=== PATIENT | male | born 1975 | race Caucasian/White ===

== ENCOUNTER 2016-07-31 00:53 | Inpatient (IN) | payer OTHER ==
[~2016-07-31] VITALS: Ht 175.3 cm; Wt 75.1 kg
[2016-07-31] MEDS ORDERED: SODIUM CHLORIDE 0.9% 1,000 ML IV ONE ×2 (02:00→03:45)
[2016-07-31 02:25] LABS: MEAN CORPUSCULAR HEMOGLOBIN 29.1 pg (26.0-34.0); MEAN CORPUSCULAR HGB CONC 33.4 G/dL (31.0-37.0); MEAN CORPUSCULAR VOLUME 87 fL (80-100); PLATELET COUNT (AUTO) 339 K/uL (150-450); RED BLOOD CELL COUNT(AUTO) 6.51 MIL/uL (4.50-5.90); RED CELL DISTRIBUTION WIDTH 13.1 % (11.5-14.5)
[2016-07-31 02:42] LABS: HEMATOCRIT 56.7 % (41-53)
[2016-07-31 02:46] LABS: GLUCOSE,POINT OF CARE 68 MG/DL (70-110)
[2016-07-31 02:53] LABS: APPEARANCE,URINE CLEAR (CLEAR); GLUCOSE, URINE (UA) NEGATIVE (NEGATIVE); KETONES,URINE TRACE mg/dL (NEGATIVE); LEUKOCYTE ESTERASE ,URINE SMALL (NEGATIVE); OCCULT BLOOD,URINE NEGATIVE (NEGATIVE); PROTEIN,URINE POS 1+ (NEGATIVE)
[2016-07-31 03:03] LABS: RBC,URINE 0-2 /HPF (0-2); SQUAMOUS EPITHELIAL CELL,UR Few /LPF (None Seen)
[2016-07-31 03:04] LABS: AMORPHOUS SEDIMENT,UR Few /LPF (None Seen)
[2016-07-31 03:16] LABS: ANION GAP 20 mmol/L (8-16); CALCIUM, TOTAL 10.8 mg/dL (8.8-10.5); CARBON DIOXIDE 23 mmol/L (22-29); CHLORIDE 97 mmol/L (98-107); CREATININE 3.29 mg/dL (0.60-1.30); GLOMERULAR FILTR. RATE CALC 21 mL/min (>60); POTASSIUM 5.1 mmol/L (3.5-5.1); SODIUM SERUM 140 mmol/L (136-145); UREA NITROGEN, BLOOD 37 mg/dL (7-18)
[2016-07-31 03:22] LABS: ALANINE AMINOTRANSFERASE 218 U/L (12-78); ALBUMIN 5.5 g/dL (3.4-5.0); ASPARTATE AMINOTRANSFERASE 206 U/L (15-37); BILIRUBIN,TOTAL 1.2 mg/dL (0.1-1.0); TOTAL PROTEIN, SERUM 10.3 g/dL (6.4-8.2)
[2016-07-31] MEDS ORDERED: DEXTROSE 50%-WATER 25 GM/50 ML SYRINGE IVP ONE (03:45)
[2016-07-31 04:05] LABS: LYMPHOCYTES % (MANUAL) 6 % (22-44)
[2016-07-31 04:08] LABS: TOTAL CELLS COUNTED 100
[2016-07-31 04:31] LABS: GLUCOSE,POINT OF CARE 185 MG/DL (70-110)
[2016-07-31 04:37] LABS: SALICYLATE < 2.8 mg/dL (2.8-20.0)
[2016-07-31 04:39] LABS: ACETAMINOPHEN < 2 mcg/mL (10-30)
[2016-07-31] MEDS ORDERED: ACETAMINOPHEN 325 MG TABLET PO PRN ×2 (05:45→21:45)
[2016-07-31] MEDS ORDERED: ONDANSETRON HCL 4 MG/2 ML VIAL IVP PRN ×2 (05:45→21:45)
[2016-07-31] MEDS ORDERED: ASPIRIN 81 MG CHEWABLE TABLET PO ONE (05:45)
[2016-07-31] MEDS ORDERED: 0.9% SODIUM CHLORIDE 10 ML SYRINGE IVP PRN ×2 (05:45→21:45)
[2016-07-31 12:20] VITALS: BP 155/85
[2016-07-31 15:43] VITALS: BP 149/99
[2016-07-31 16:19] VITALS: BP 149/99
[2016-07-31 20:00] VITALS: BP 130/76
[2016-07-31] MEDS ORDERED: INFLUENZA VIRUS VACCINE QVS 2016-17 (3YR+)/PF 60 MCG/0.5 ML SYRINGE IM ONE (20:00)
[2016-07-31] MEDS ORDERED: MAGNESIUM HYDROXIDE SUSPENSION 30 ML UDCUP PO PRN (21:45)
[2016-07-31] MEDS ORDERED: OxyCODONE HCL/ACETAMINOPHEN 5-325 MG TABLET PO PRN ×2 (21:45)
[2016-07-31] MEDS: DOCUSATE SODIUM 100 MG CAPSULE PO SCH (21:58)
[2016-07-31] MEDS: SODIUM CHLORIDE 0.9% 1,000 ML IV SCH (21:59)
[2016-07-31] MEDS ORDERED: CefTRIAXone 1 GM/DEXTROSE 50 ML IV SCH (22:00)
[2016-07-31 22:34] LABS: CHOL/HDL RATIO 3.5 (4.2-7.3)
[2016-07-31] MEDS: NITROGLYCERIN 2% (1 GM=INCH) PACKET TP SCH (23:28)
[2016-07-31 23:53] VITALS: BP 134/94
[2016-08-01 04:57] VITALS: BP 126/64
[2016-08-01] MEDS: NITROGLYCERIN 2% (1 GM=INCH) PACKET TP SCH ×2 (05:31→12:00)
[2016-08-01 06:42] LABS: BASOPHILS # (AUTO) 0.06 K/uL (0.00-0.20); BASOPHILS % (AUTO) 0.7 % (0.0-2.0); EOSINOPHILS # (AUTO) 0.29 K/uL (0.00-0.70); EOSINOPHILS % (AUTO) 3.06 % (1.0-6.0); HEMATOCRIT 46.1 % (41-53); HEMOGLOBIN 15.7 g/dL (13.5-17.5); LYMPHOCYTES # (AUTO) 3.3 K/uL (1.0-4.8); LYMPHOCYTES % (AUTO) 34.8 % (22.0-44.0); MEAN CORPUSCULAR HEMOGLOBIN 29.6 pg (26.0-34.0); MEAN CORPUSCULAR HGB CONC 34.1 G/dL (31.0-37.0); MEAN CORPUSCULAR VOLUME 87 fL (80-100); MONOCYTES # (AUTO) 0.9 K/uL (0.1-1.0); MONOCYTES % (AUTO) 8.9 % (2.0-9.0); NEUTROPHILS # (AUTO) 5.1 K/uL (1.8-7.7); NEUTROPHILS % (AUTO) 52.6 % (40.0-70.0); PLATELET COUNT (AUTO) 239 K/uL (150-450); RED BLOOD CELL COUNT(AUTO) 5.32 MIL/uL (4.50-5.90); RED CELL DISTRIBUTION WIDTH 13.4 % (11.5-14.5); WHITE BLOOD COUNT (AUTO) 9.6 K/uL (4.5-11.0)
[2016-08-01 07:03] LABS: ALBUMIN 3.4 g/dL (3.4-5.0); BILIRUBIN,TOTAL 0.5 mg/dL (0.1-1.0); CALCIUM, TOTAL 8.1 mg/dL (8.8-10.5); CREATININE 1.44 mg/dL (0.60-1.30); MAGNESIUM 2.1 mg/dL (1.80-2.40); TOTAL PROTEIN, SERUM 6.8 g/dL (6.4-8.2)
[2016-08-01 07:40] VITALS: BP 122/62
[2016-08-01] MEDS ORDERED: PANTOPRAZOLE SODIUM 40 MG/VIAL IVP SCH (09:00)
[2016-08-01] MEDS: DOCUSATE SODIUM 100 MG CAPSULE PO SCH (09:50)
[2016-08-01] MEDS: SODIUM CHLORIDE 0.9% 1,000 ML IV SCH (09:50)
[2016-08-01 11:42] VITALS: BP 129/84
[2016-08-01] MEDS ORDERED: CIP250 PO (13:11)
== END 2016-08-01 15:30 | disposition home or self-care (01) | DRG 52 ==
LOC: EMS 00:56 → EDBD 00:56 → AHU 10:40 → 5S 20:46
PROVIDERS: ADMIT Internal Medicine; ATTEND Internal Medicine
PROC: 3E0234Z Introduction of Serum, Toxoid and Vaccine into Muscle, Percutaneous Approach (ICD-10-PCS; principal; 2016-07-31)
DX: G92 Toxic encephalopathy (principal); N17.0 Acute kidney failure with tubular necrosis; I24.8 Other forms of acute ischemic heart disease; E86.0 Dehydration; E16.2 Hypoglycemia, unspecified; N39.0 Urinary tract infection, site not specified; B19.20 Unspecified viral hepatitis C without hepatic coma; I10 Essential (primary) hypertension; F15.10 Other stimulant abuse, uncomplicated; F17.210 Nicotine dependence, cigarettes, uncomplicated; Z71.51 Drug abuse counseling and surveillance of drug abuser; Z23 Encounter for immunization
CPT/HCPCS: 70450; 76700; 82948; 82962; 83735; 87040; 90471; 93005; 93306; 96361; 96374; 99285; C9113; G0480; G0481; J0696; J7030